=== PATIENT | female | born 1985 | race Caucasian/White ===

== ENCOUNTER 2017-02-02 07:21 | Day surgery (SDC) | payer OTHER ==
[2017-01-30 08:55] LABS: HEMOGLOBIN 13.6 g/dL (12.0-16.0)
[2017-01-30 09:12] LABS: A/G RATIO 0.8 (0.7-1.9); ALBUMIN 3.5 G/DL (3.5-5.0); ALKALINE PHOSPHATASE 86 U/L (45-117); BUN (BLOOD UREA NITROGEN) 11 MG/DL (6-23); CALCIUM, SERUM 8.7 MG/DL (8.5-10.4); CHLORIDE, SERUM 107 MMOL/L (96-112); CO2 (CARBON DIOXIDE) 25 MMOL/L (24-34); CREATININE 0.85 MG/DL (0.55-1.02); GFR AFRICAN AMERICAN 105 ML/MIN (>=60); GFR NON AFRICAN AMERICAN 91 ML/MIN (>=60); GLOBULIN 4.2 G/DL (2.5-4.1); GLUCOSE, SERUM 91 MG/DL (60-99); POTASSIUM, SERUM 4.2 MMOL/L (3.5-5.3); SGOT(AST) 15 U/L (5-40); SGPT(ALT) 23 U/L (5-65); SODIUM, SERUM 143 MMOL/L (135-148); TOTAL BILIRUBIN 0.6 MG/DL (0-1.2); TOTAL PROTEIN 7.7 G/DL (6.0-8.5)
--- NOTE | ~2017-02-02 | OP ---
Record Of Operation [place] [id number] [facility] [place]. [address] NAME: TAY BOWEN : 83 [place] [facility] [place]#: [id number] AGE: 31 ADM/REG DATE : 02/02/17 MR#: [id number] REPORT SERV DATE: 02/02/17 DICTATED BY: SINA HESS DATE: 02/02/17 REPORT STATUS : Draft TRANSCRIBED BY: MODL DATE: 02/02/17 DATE OF PROCEDURE: PREOPERATIVE DIAGNOSES: 1. Chronic cholecystitis with gallbladder ejection fraction of 26%. 2. Fatty liver. 3. Obesity. 4. Nicotine dependence. POSTOPERATIVE DIAGNOSES: 1. Chronic cholecystitis with gallbladder ejection fraction of 26%. 2. Fatty liver. 3. Obesity. 4. Nicotine dependence. PROCEDURE: Laparoscopic cholecystectomy. ANESTHESIA: General. SURGEON: Sina Hess M.D. 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 COMPLICATIONS: None. DRAINS: None. ESTIMATED BLOOD LOSS: 20 mL. FINDINGS: The patient had a minimally thickened gallbladder wall with normal preoperative liver function studies and a normal-sized cystic duct. No cholangiogram was obtained secondary to the above findings. OPERATIVE TECHNIQUE: The patient was brought to the operating room and placed on the table in supine position. She had preoperative IV antibiotics. She had sequential hose in place. She voided prior to the procedure. She underwent general endotracheal anesthesia and was prepped and draped in a sterile fashion and a time-out was completed. Local anesthesia was instilled to the periumbilical skin. A 15 blade knife was used to make an incision through the base of the umbilicus. The skin and fascia were elevated and a Veress needle was inserted. The water drop test was safely performed. An 11 mm trocar was inserted through the umbilicus followed by the laparoscope. There was no evidence of Veress or trocar injury. The patient was then placed in reverse Trendelenburg and rolled to the left. An 11 mm subxiphoid and two 5 mm right upper quadrant trocars were placed under direct visualization. The gallbladder fundus was grasped and elevated over the liver edge. The infundibulum was retracted inferolaterally. The cystic duct gallbladder junction was identified on its lateral aspect. It was circumferentially dissected using blunt Record Of Operation [place] [id number] [facility] [place]. [address] NAME: TAY BOWEN : 83 [place] [facility] [place] PAT#: [id number] AGE: 31 ADM/REG DATE : 02/02/17 MR#: [id number] REPORT SERV DATE: 02/02/17 DICTATED BY: SINA HESS DATE: 02/02/17 REPORT STATUS : Draft TRANSCRIBED BY: MODL DATE: 02/02/17 dissection. Dissection more medial revealed the cystic artery. It was also bluntly dissected through its junction with the gallbladder. At this point, two clips were placed proximally and distally on the duct and artery and they were divided between the clips. The gallbladder was then removed from the fossa using electrocautery hook and extracted through the umbilicus. The laparoscope and trocar were reinserted. Examination of the hepatic fossa was noted to be hemostatic. The clips were noted to be intact without encroachment of the bile duct. There was no evidence of any bleeding, biliary spillage, or other visual abnormalities. At this point, all the instruments and trocars were removed under direct visualization as the pneumoperitoneum was aspirated. The umbilical fascia was reapproximated using a [id number] Vicryl suture. The skin edges were reapproximated using absorbable subcuticular Monocryl sutures. Dermabond was applied. She was extubated and taken to the recovery room in stable condition. All sponge and needle counts were reported correct. /MAYRA Sina Hess M.D. / [id number] CC: Sina Hess M.D. [facility] [place]
[~2017-02-02 07:21] MED LIST: ZANTAC150 MG PO
== END 2017-02-02 14:46 | disposition home or self-care (01) ==
LOC: SDC 07:21
PROVIDERS: Surgery
PROC: 0FT44ZZ Resection of Gallbladder, Percutaneous Endoscopic Approach (ICD-10-PCS; principal; 2017-02-02 09:00)
DX: K81.1 Chronic cholecystitis (principal); K76.0 Fatty (change of) liver, not elsewhere classified; K21.9 Gastro-esophageal reflux disease without esophagitis; F17.210 Nicotine dependence, cigarettes, uncomplicated; L30.9 Dermatitis, unspecified; E66.9 Obesity, unspecified; Z68.32 Body mass index [BMI] 32.0-32.9, adult; Z88.0 Allergy status to penicillin; Z88.5 Allergy status to narcotic agent; Z98.51 Tubal ligation status; Z98.890 Other specified postprocedural states; Z79.899 Other long term (current) drug therapy
CPT/HCPCS: 80053; 84703; 85014; 85018; 88304; A9270-GY; J1580; J1885; J2250; J2405; J2710; J3010